=== PATIENT | female | born 1995 | race Caucasian/White ===

== ENCOUNTER 2021-03-05 05:31 | Inpatient (IN) | payer OTHER ==
[~2021-03-05] VITALS: Ht 144.8 cm; Wt 70.8 kg
[2021-03-05] MEDS ORDERED: PRENATAL VITAM1 EAC5 PO (06:43)
[2021-03-05 07:01] LABS: HEMOGLOBIN 7.2 gm/dl (12.3-15.3); RED BLOOD COUNT 3.21 M/UL (4.00-5.10); WHITE BLOOD COUNT 9.5 K/UL (4.5-11.0)
[2021-03-05] MEDS ORDERED: IBUPROFEN800 MG PO (17:52)
[2021-03-05] MEDS ORDERED: COLACE100 MG PO (17:52)
[2021-03-06 06:30] LABS: HEMOGLOBIN 7.7 gm/dl (12.3-15.3)
[2021-03-07] MEDS ORDERED: FERROUS SULFAT325 M2 PO (13:50)
== END 2021-03-07 15:40 | disposition home or self-care (01) | DRG 807 ==
LOC: GENOP 05:31 → OB 05:38
PROVIDERS: ADMIT Obstetrics & Gynecology
PROC: 10E0XZZ Delivery of Products of Conception, External Approach (ICD-10-PCS; principal; 2021-03-07)
PROC: 00HU33Z Insertion of Infusion Device into Spinal Canal, Percutaneous Approach (ICD-10-PCS; 2021-03-07)
PROC: 3E0R3BZ Introduction of Anesthetic Agent into Spinal Canal, Percutaneous Approach (ICD-10-PCS; 2021-03-07)
PROC: 10H07YZ Insertion of Other Device into Products of Conception, Via Natural or Artificial Opening (ICD-10-PCS; 2021-03-07)
DX: O99.02 Anemia complicating childbirth (principal); Z37.0 Single live birth; F19.10 Other psychoactive substance abuse, uncomplicated; Z20.822 Contact with and (suspected) exposure to COVID-19; D64.9 Anemia, unspecified; Z3A.38 38 weeks gestation of pregnancy; Z83.3 Family history of diabetes mellitus; Z82.49 Family history of ischemic heart disease and other diseases of the circulatory system; Z87.440 Personal history of urinary (tract) infections
CPT/HCPCS: 36415; 51702; 81001; 85014; 85018; 85025; 90707; 90715; J2590; U0003

== ENCOUNTER 2021-09-29 15:02 | Emergency (ER) | payer OTHER ==
[~2021-09-29 15:02] MED LIST: COLACE100 MG PO; FERROUS SULFAT325 M2 PO; IBUPROFEN800 MG PO; PRENATAL VITAM1 EAC5 PO
[2021-09-29 16:02] LABS: HEMOGLOBIN 12.6 gm/dl (12.3-15.3); RED BLOOD COUNT 4.43 M/UL (4.00-5.10); WHITE BLOOD COUNT 19.2 K/UL (4.5-11.0)
[2021-09-29 16:34] LABS: BUN/CREATININE RATIO 14 (0-10)
[2021-09-30 05:04] LABS: ACINETOBACTER BAUMANNII Not Detected (Negative); CANDIDA ALBICANS Not Detected (Negative); CANDIDA KRUSEI Not Detected (Negative); ENTEROCOCCUS Not Detected (Negative); HAEMOPHILUS INFLUENZAE Not Detected (Negative); KLEBSIELLA OXYTOCA Not Detected (Negative); KLEBSIELLA PNEUMONIAE Not Detected (Negative); KPC-CARBAPENEM-RESISTANCE GENE Not Detected (Negative); PROTEUS Not Detected (Negative); PSEUDOMONAS AERUGINOSA Not Detected (Negative); SERRATIA MARCESANS Not Detected (Negative); STAPHYLOCOCCUS Not Detected (Negative); STAPHYLOCOCCUS AUREUS Not Detected (Negative); STREP AGALACTIAE (GROUP B) Not Detected (Negative); STREP PYOGENES (GROUP A) Not Detected (Negative); STREPTOCOCCUS Not Detected (Negative); mecA (METHICILLIN RESIST GENE Not Detected (Negative); vanA/B (VANCOMYCIN RESIST GENE Not Detected (Negative)
[2021-09-30 05:05] LABS: CANDIDA TROPICALIS Not Detected (Negative)
[2021-09-30 07:31] LABS: ESCHERICHIA COLI DETECTED (Negative)
== END 2021-09-30 02:13 | disposition short-term general hospital (02) ==
LOC: ER1 15:02
PROVIDERS: Emergency Medicine
DX: N83.201 Unspecified ovarian cyst, right side (principal); N39.0 Urinary tract infection, site not specified; N13.2 Hydronephrosis with renal and ureteral calculous obstruction; Z20.822 Contact with and (suspected) exposure to COVID-19
CPT/HCPCS: 80053; 81001; 83605; 83690; 84703; 85025; 87040; 87077; 87086; 87150; 87186; 96374; 96375; 96376; 99285; J0696; J1885; J2270; J2405; J7030; Q9967; U0002